=== PATIENT | male | born 1985 | race Caucasian/White ===

== ENCOUNTER 2018-11-04 01:35 | Emergency (ER) | payer MEDICAID ==
[~2018-11-04] VITALS: Ht 162.6 cm; Wt 72.6 kg
[2018-11-04 01:38] VITALS: BP_SYST 138
[2018-11-04 02:01] VITALS: BP_SYST 138
== END 2018-11-04 02:01 ==
LOC: SED 01:35
DX: Z02.89 Encounter for other administrative examinations (principal); Z90.49 Acquired absence of other specified parts of digestive tract
CPT/HCPCS: 99283

== ENCOUNTER 2024-02-16 08:21 | Emergency (ER) | payer SELFPAY ==
[~2024-02-16] VITALS: Ht 162.6 cm; Wt 68.0 kg
[2024-02-16 08:36] VITALS: BP_SYST 120; PULSE 99; RESP 16; TEMP 97.6; O2SAT 95
[2024-02-16 08:42] VITALS: BP_SYST 120; PULSE 99; RESP 16; TEMP 97.6; O2SAT 95
== END 2024-02-16 08:30 ==
LOC: SED 08:21
DX: M79.604 Pain in right leg (principal); Z93.3 Colostomy status
CPT/HCPCS: 99283